=== PATIENT | female | born 1995 | race Caucasian/White ===

== ENCOUNTER → 2025-01-12 13:11 | Outpatient (BNVA) | payer OTHER, SELFPAY | PROVIDERS: Visit Provider Physician Assistant Medical | DX: S80.02XA Contusion of left knee, initial encounter (principal); W18.09XA Striking against other object with subsequent fall, initial encounter; M25.462 Effusion, left knee | CPT/HCPCS: 73564; 99203 ==

== ENCOUNTER → 2025-01-15 14:28 | Outpatient (BNVA) | payer OTHER, SELFPAY | PROVIDERS: Visit Provider Physician Assistant Medical | DX: S80.02XA Contusion of left knee, initial encounter (principal); W18.09XA Striking against other object with subsequent fall, initial encounter | CPT/HCPCS: 99213 ==

== ENCOUNTER → 2025-01-22 15:35 | Outpatient (BNVA) | payer OTHER, SELFPAY | PROVIDERS: Visit Provider Physician Assistant Medical | DX: S80.02XD Contusion of left knee, subsequent encounter (principal); W18.09XD Striking against other object with subsequent fall, subsequent encounter | CPT/HCPCS: 99213 ==

== ENCOUNTER → 2025-02-08 08:56 | Outpatient (BNVA) | payer OTHER, SELFPAY | PROVIDERS: Visit Provider Physician Assistant Medical | DX: S80.02XD Contusion of left knee, subsequent encounter (principal); W18.09XA Striking against other object with subsequent fall, initial encounter | CPT/HCPCS: 99213 ==

== ENCOUNTER → 2025-03-13 15:27 | Outpatient (BNVA) | payer OTHER, SELFPAY | PROVIDERS: Visit Provider Physician Assistant Medical | DX: S80.02XD Contusion of left knee, subsequent encounter (principal); W18.09XD Striking against other object with subsequent fall, subsequent encounter | CPT/HCPCS: 99213 ==

== ENCOUNTER → 2025-03-27 14:20 | Outpatient (BNVA) | payer OTHER, SELFPAY | PROVIDERS: Visit Provider Physician Assistant Medical | DX: S80.02XD Contusion of left knee, subsequent encounter (principal); W18.09XD Striking against other object with subsequent fall, subsequent encounter | CPT/HCPCS: 99213 ==

== ENCOUNTER → 2025-04-23 15:18 | Outpatient (BNVA) | payer OTHER, SELFPAY | PROVIDERS: Visit Provider Physician Assistant Medical | DX: S80.02XD Contusion of left knee, subsequent encounter (principal); W18.09XD Striking against other object with subsequent fall, subsequent encounter | CPT/HCPCS: 99213 ==

== ENCOUNTER → 2025-05-21 15:14 | Outpatient (BNVA) | payer OTHER, SELFPAY | PROVIDERS: Visit Provider Physician Assistant Medical | DX: S80.02XD Contusion of left knee, subsequent encounter (principal); W18.09XD Striking against other object with subsequent fall, subsequent encounter | CPT/HCPCS: 99213 ==

== ENCOUNTER → 2025-07-26 12:47 | Outpatient (BNVA) | payer OTHER, SELFPAY | PROVIDERS: Visit Provider Physician Assistant Medical | DX: S80.02XD Contusion of left knee, subsequent encounter (principal); W18.09XD Striking against other object with subsequent fall, subsequent encounter; Z02.79 Encounter for issue of other medical certificate | CPT/HCPCS: 99213 ==